=== PATIENT | male | born 1980 | race Caucasian/White ===

== ENCOUNTER 2023-06-20 12:45 | Outpatient (OUT) | payer MEDICAID, SELFPAY | END 2023-06-20 12:46 | disposition home or self-care (01) | LOC: SLEEP 12:45 | PROVIDERS: PCP Psychiatry & Neurology Neurology; Visit Provider Psychiatry & Neurology Neurology | DX: G47.11 Idiopathic hypersomnia with long sleep time (principal); G47.10 Hypersomnia, unspecified; R06.83 Snoring; R53.82 Chronic fatigue, unspecified; R40.0 Somnolence; E66.9 Obesity, unspecified; Z68.27 Body mass index [BMI] 27.0-27.9, adult | CPT/HCPCS: 95806 ==